=== PATIENT | female | born 1985 | race Caucasian/White ===

== ENCOUNTER 2021-02-22 15:13 | Emergency (ER) | payer MEDICAID, SELFPAY ==
--- NOTE | ~2021-02-22 | US_ITS ---
EXAMINATION: US ABDOMEN LIMITED CLINICAL INFORMATION: Increasing abdominal girth with intermittent pain. Rule out ascites.. COMPARISON: None TECHNIQUE: Real-time imaging of the right upper quadrant abdominal viscera. FINDINGS: No ascites is identified. The main portal vein is patent with hepatopedal flow. Patient is status post cholecystectomy. There is splenomegaly present at 15 cm in vertical span. The few images of the liver that are included in the study do not demonstrate any intrahepatic bile duct dilatation. US/US abdomen limited IMPRESSION: No ascites identified. Splenomegaly.
--- NOTE | ~2021-02-22 | CT_ITS ---
EXAMINATION: CT ABDOMEN AND PELVIS WITHOUT CONTRAST CLINICAL INFORMATION: Bloating and abdominal pain. COMPARISON: Abdominal ultrasound of 02/23/2021. TECHNIQUE: Multidetector volumetric imaging was performed from the superior aspect of the liver through the pubic symphysis. Sagittal and coronal reformatted images were obtained on the technologist's workstation. This CT examination was performed using dose optimization techniques as appropriate, variously including the following: *Automated exposure control *Adjustment of mA and/or kV according to patient size (this includes techniques or standardized protocols for targeted exams where dose is matched to indication/reason for exam; i.e. extremities or head) *Use of iterative reconstruction technique DLP: 634 mGy-cm FINDINGS: LUNG BASES: The visualized lung bases are unremarkable. LIVER, GALLBLADDER, AND BILIARY TREE: The liver is normal in size. There is hypertrophy of the left hepatic lobe with mild liver contour nodularity. No focal lesion is noted in the liver within the limits of the noncontrast study. The gallbladder is surgically absent. The proximal common bile duct measures 1.2 cm in diameter. Distally, the common bile duct tapers normally. There is no evidence of radiopaque filling defect in the common bile duct. No intrahepatic biliary ductal dilatation. PANCREAS: Unremarkable. SPLEEN: Enlarged measuring 14.4 cm in craniocaudal dimension and 15.5 cm in AP dimension. No focal splenic lesion is noted. ADRENAL GLANDS: Unremarkable. KIDNEYS AND URETERS: The kidneys are normal in size, shape, and attenuation. No hydronephrosis, hydroureter, or calculi are seen. No perinephric stranding. BLADDER: Somewhat underdistended and therefore not optimally evaluated. No radiopaque calculi. GASTROINTESTINAL TRACT: The small and large bowel is unremarkable. The appendix is unremarkable. Moderate stool burden in the colon. The stomach is distended with ingested material and appears grossly unremarkable. ABDOMINAL WALL: There is a small right inguinal hernia containing fat, measuring 2 cm in maximum dimension. OMENTUM, MESENTERY AND PERITONEAL CAVITY: There is no evidence of free intraperitoneal air or fluid. Faint stranding is noted in the root of the small bowel mesentery with subcentimeter lymph nodes in the region. LYMPH NODES: No pathologically enlarged lymph nodes are noted. VASCULAR: Aortoiliac vessels are normal in caliber. PELVIC VISCERA: Unremarkable CT appearance of the uterus. No adnexal mass. Trace amount of air in the vagina. OSSEOUS STRUCTURES: Unremarkable. CT/CT abdomen pelvis wo con IMPRESSION: 1. Morphology of the liver is concerning for underlying cirrhosis. Recommend clinical correlation and correlation with lab values. 2. Splenomegaly. 3. Status post cholecystectomy. Mild dilatation of the common bile duct measuring up to 1.1 cm. The findings are probably related to post cholecystectomy status, however correlate with liver function tests. If clinically warranted, correlation with ERCP and/or MRCP would be helpful for further evaluation. 4. Faint stranding in the root of the small bowel mesentery with subcentimeter lymph nodes. 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 Findings can be seen in the setting of lymphoproliferative disorder. There are no pertinent prior studies for comparison. Recommend clinical correlation and correlation with lab values. 5. Moderate stool burden in the colon. No abnormal bowel dilatation or bowel obstruction.
--- NOTE | ~2021-02-22 | XR_ITS ---
EXAMINATION: XR CERVICAL SPINE CLINICAL INFORMATION: Pain COMPARISON: None TECHNIQUE: 3 views of the cervical spine were obtained. FINDINGS: Bone alignment is normal. No fracture or dislocation is seen. Disc spaces are normal. Prevertebral soft tissues are normal. XR/XR cervical spine 3V IMPRESSION: Unremarkable examination.
[2021-02-22 15:59] VITALS: BP 121/86; BP 128/80; PULSE 110; PULSE 92; RESP 18; TEMP 36.8; O2SAT 100; O2SAT 98; BMI 30.2
[2021-02-22 21:19] LABS: MANUAL DIFF FLAG NO
[2021-02-22 21:20] LABS: Basophils Percent Auto 0.3 % (0-2); Eosinophils Absolute Auto 0.1 X10*3/uL (0.0-0.4); Eosinophils Percent Auto 2.2 % (0-4); Hematocrit 35.7 % (37.0-47.0); Hemoglobin 11.9 g/dl (12.0-16.0); Imm Gran Abs Auto 0.01 X10*3/uL (0.00-0.03); Imm Gran Pct Auto 0.3 % (0.0-0.4); Lymphocytes Absolute Auto 0.9 X10*3/uL (1.2-4.9); Lymphocytes Percent Auto 27.4 % (20-40); Mean Corpuscular HGB Conc 33.3 g/dl (31.0-35.0); Mean Corpuscular Hemoglobin 30.3 pg (27.0-33.0); Mean Corpuscular Volume 90.8 fL (80.0-98.0); Mean Platelet Volume 12.1 fL (9.4-12.3); Monocytes Absolute Auto 0.4 X10*3/uL (0.1-1.2); Monocytes Percent Auto 12.6 % (2-11); Neutrophils Absolute Auto 1.8 x10*3/uL (2.0-8.3); Neutrophils Percent Auto 57.2 % (45-73); Red Blood Count 3.93 X10*6/uL (4.20-5.50); Red Cell Distribution Width 14.4 % (11.0-16.0); White Blood Count 3.2 X10*3/uL (4.8-10.8)
[2021-02-22 21:40] LABS: Platelet Count 93 X10*3/uL (160-400)
[2021-02-22 21:59] LABS: Alanine Aminotransferase 121 U/L (0-31); Albumin Level 3.9 g/dL (3.5-5.0); Alkaline Phosphatase 109 U/L (39-117); Anion Gap 9 (12-20); Aspartate Amino Transferase 76 U/L (5-31); Bilirubin Total 0.5 mg/dL (0.0-1.0); Blood Urea Nitrogen 13 mg/dL (9-16); Calcium 9.6 mg/dL (8.4-10.2); Carbon Dioxide 32 mmol/L (22-29); Chloride 103 mmol/L (96-108); Creatinine Clr Calc Pharmacy 98.2; Estimated Glomerular Filt Rate > 60; Glucose Random 122 mg/dL (60-115); Potassium 4.3 mmol/L (3.3-5.1); Sodium 140 mmol/L (135-145); Total Protein 7.6 g/dL (6.5-8.0)
[2021-02-23 05:57] LABS: Appearance Urine CLEAR; Color Urine YELLOW; Glucose Urine UA NEG (NEG); Leukocyte Esterase Urine 1+ (NEG); Nitrite Urine NEG (NEG); PH 6.5 (5.0-8.0); UACC Culture Trigger YES; Urine Blood NEG (NEG); Urine Ketones NEG (NEG); Urine Protein NEG (NEG-TRACE)
[2021-02-23 06:00] LABS: UPreg QC Valid YES; Urine Pregnancy NEGATIVE (NEGATIVE)
[2021-02-23 06:06] LABS: Bacteria Urine 2+ /LPF; Mucus Urine 1+ /LPF; Squamous Epithelial Cell Urine 1+ /LPF
--- NOTE | 2021-02-23 08:07 | PC.NURSE ---
abd remains distended and somewhat firm. c/o most pain in upper quads. no vomitting. hx of Hep C. no treatment. has appointement at [facility].
--- NOTE | 2021-02-23 08:08 | PC.NURSE ---
amendment to previous note. abd is soft with areas of firmness. no jaundice. no SOB
[2021-02-23 08:09] VITALS: BP 125/87; PULSE 79; RESP 18; TEMP 36.8; O2SAT 98
--- NOTE | 2021-02-23 09:26 | PC.NURSE ---
pt will have someone bring her regular meds
--- NOTE | 2021-02-23 10:55 | ED_ITS ---
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 and she has hep C She has had no fevers no dysuria no nausea or vomiting, right now she has no pain in the abdomen She also complains of several weeks of pain in her neck with sometimes numbness and tingling in her fingertips with no injury she has never had weakness or loss of sensation Related Data Previous Rx's Medication Instructions Recorded oxycodone 5 mg tablet 5 mg PO Q6H PRN #10 tab 02/23/21 Allergies Allergy/AdvReac Type Severity Reaction Status Date / Time No Known Allergies Allergy Verified 02/22/21 15:59 Review of Systems Review of Systems: Positive for abdominal pain, increased abdominal girth, bloating as well as neck pain Negatives are no fever no chills no dizziness no weakness no fainting no feeling faint no headache no neck pain no chest pain no shortness of breath no nausea vomiting or diarrhea no dysuria no frequency no skin rash Yes all other systems are reviewed and are negative [facility] Past Medical History [facility] Narrative: Recovering alcoholic 90 days sober, as well as history of hep C Source: nursing notes reviewed Social History Social History Advance Directives: No Advance Directives Information Provided: No Patient : No Physical Exam Vital Signs: Vital Signs: Last Vital Signs Temp 98.2 F 02/23/21 08:09 Pulse 79 02/23/21 08:09 Resp 18 02/23/21 08:09 BP 125/87 02/23/21 08:09 Pulse Ox 98 02/23/21 08:09 BMI result Body Mass Index 30.2 General appearance is no acute distress The eyes are anicteric with no pallor Pharynx the mucous membranes are moist Neck is supple, but there was some posterior bilateral paraspinal tenderness, range of motion is unrestricted with only mild discomfort Chest clear to auscultation bilateral Heart no murmur Abdomen was soft, with very mild diffuse tenderness There appeared to be a mid abdominal bulge which was reducible so likely a reducible hernia The back no CVA tenderness Extremities full range of motion x4 no edema Skin no rashes Course Course Course Narrative: X-ray of the C-spine showed normal alignment with normal disc spaces She is advised to follow with primary care doctor for further evaluation physi georgina therapy and if needed referral to a specialist if pain continues No acute neurologic deficits now and she was comfortable throughout visit Patient remained comfortable throughout long ER visit with no need for any pain medication, no nausea no vomiting tolerating p.o. Abdominal ultrasound did not identify any ascites, it did demonstrate splenomegaly no other acute finding CT of the abdomen demonstrated questionable underlying cirrhosis, post cholecystectomy there was some mild dilatation of the bile duct most likely related to post cholecystectomy Question of mesenteric panniculitis, but there are no acute findings requiring emergent care and patient was comfortable There was no hernia identified on the CT or the ultrasound but I did believe I palpated a reducible hernia mass in the mid abdomen so I did refer her to a surgeon for further evaluation and gave her warnings if the mass becomes on reducible or she starts vomiting her pain gets worse she will come back Labs did demonstrate some elevation of AST and ALT, they did demonstrate platelets 93 and patient is advised to follow with both her doctor and her swatcher who she has a schedule to see in a few weeks for hep C evaluation Well-appearing patient tolerating p.o. was discharged to follow with surgeon and GI and primary care Medical Decision Making Lab Data Lab results reviewed: Yes I reviewed the patient's lab results. Result diagrams: 02/22/21 21:14 02/22/21 21:14 Labs: Lab Results 02/22/21 02/22/21 02/23/21 Range/Units 21:14 21:14 05:39 WBC 3.2 L (4.8-10.8) X10*3/uL RBC 3.93 L (4.20-5.50) X10*6/uL Hgb 11.9 L (12.0-16.0) g/dl Hct 35.7 L (37.0-47.0) % MCV 90.8 (80.0-98.0) fL MCH 30.3 (27.0-33.0) pg MCHC 33.3 (31.0-35.0) g/dl RDW 14.4 (11.0-16.0) % Plt Count 93 L (160-400) X10*3/uL MPV 12.1 (9.4-12.3) fL Immature Gran % (Auto) 0.3 (0.0-0.4) % Neut % (Auto) 57.2 (45-73) % Lymph % (Auto) 27.4 (20-40) % [place] % (Auto) 12.6 H (2-11) % Eos % (Auto) 2.2 (0-4) % Baso % (Auto) 0.3 (0-2) % Lymph # (Auto) 0.9 L (1.2-4.9) X10*3/uL [place] # (Auto) 0.4 (0.1-1.2) X10*3/uL Eos # (Auto) 0.1 (0.0-0.4) X10*3/uL Baso # (Auto) 0.0 (0.0-0.2) X10*3/uL Abs Immat Gran (auto) 0.01 (0.00-0.03) X10*3/uL Absolute Neuts (auto) 1.8 L (2.0-8.3) x10*3/uL Absolute Nucleated RBC 0.000 (0.0-0.012) X10*3/uL Nucleated RBC % (auto) 0.0 (0.0-0.2) /100WBC Sodium 140 (135-145) mmol/L Potassium 4.3 (3.3-5.1) mmol/L Chloride 103 (96-108) mmol/L Carbon Dioxide 32 H (22-29) mmol/L Anion Gap 9 L (12-20) BUN 13 (9-16) mg/dL Creatinine 0.75 (0.5-1.4) mg/dL Estim Creat Clear Calc 98.2 Estimated GFR > 60 Random Glucose 122 H (60-115) mg/dL Calcium 9.6 (8.4-10.2) mg/dL Total Bilirubin 0.5 (0.0-1.0) mg/dL AST 76 H (5-31) U/L ALT 121 H (0-31) U/L Alkaline Phosphatase 109 (39-117) U/L Total Protein 7.6 (6.5-8.0) g/dL Albumin 3.9 (3.5-5.0) g/dL Urine Color YELLOW Urine Appearance CLEAR Urine pH 6.5 (5.0-8.0) Ur Specific [place] 1.020 (1.005-1.025) Urine Protein NEG (NEG-TRACE) MG/DL Urine Glucose (UA) NEG (NEG) MG/DL Urine Ketones NEG (NEG) MG/DL Urine Blood NEG (NEG) Urine Nitrite NEG (NEG) Ur Leukocyte Esterase 1+ H (NEG) Urine RBC 1-4 (0) /HPF Urine WBC 15-29 H (0-4) /HPF Ur Squamous Epith Cells 1+ /LPF Urine Bacteria 2+ /LPF Urine Mucus 1+ /LPF Urine Test (NEGATIVE) 02/23/21 Range/Units 05:39 WBC (4.8-10.8) X10*3/uL RBC (4.20-5.50) X10*6/uL Hgb (12.0-16.0) g/dl Hct (37.0-47.0) % MCV (80.0-98.0) fL MCH (27.0-33.0) pg MCHC (31.0-35.0) g/dl RDW (11.0-16.0) % Plt Count (160-400) X10*3/uL MPV (9.4-12.3) fL Immature Gran % (Auto) (0.0-0.4) % Neut % (Auto) (45-73) % Lymph % (Auto) (20-40) % [place] % (Auto) (2-11) % Eos % (Auto) (0-4) % Baso % (Auto) (0-2) % Lymph # (Auto) (1.2-4.9) X10*3/uL [place] # (Auto) (0.1-1.2) X10*3/uL Eos # (Auto) (0.0-0.4) X10*3/uL Baso # (Auto) (0.0-0.2) X10*3/uL Abs Immat Gran (auto) (0.00-0.03) X10*3/uL Absolute Neuts (auto) (2.0-8.3) x10*3/uL Absolute Nucleated RBC (0.0-0.012) X10*3/uL Nucleated RBC % (auto) (0.0-0.2) /100WBC Sodium (135-145) mmol/L Potassium (3.3-5.1) mmol/L Chloride (96-108) mmol/L Carbon Dioxide (22-29) mmol/L Anion Gap (12-20) BUN (9-16) mg/dL Creatinine (0.5-1.4) mg/dL Estim Creat Clear Calc Estimated GFR Random Glucose (60-115) mg/dL Calcium (8.4-10.2) mg/dL Total Bilirubin (0.0-1.0) mg/dL AST (5-31) U/L ALT (0-31) U/L Alkaline Phosphatase (39-117) U/L Total Protein (6.5-8.0) g/dL Albumin (3.5-5.0) g/dL Urine Color Urine Appearance Urine pH (5.0-8.0) Ur Specific [place] (1.005-1.025) Urine Protein (NEG-TRACE) MG/DL Urine Glucose (UA) (NEG) MG/DL Urine Ketones (NEG) MG/DL Urine Blood (NEG) Urine Nitrite (NEG) Ur Leukocyte Esterase (NEG) Urine RBC (0) /HPF Urine WBC (0-4) /HPF Ur Squamous Epith Cells /LPF Urine Bacteria /LPF Urine Mucus /LPF Urine Test NEGATIVE (NEGATIVE) Discharge Plan Discharge Clinical Impression: Thrombocytopenia, Neck pain, Hernia Patient Disposition: Home, Self-Care Additional Instructions: Follow with surgeon for evaluation of hernia in abdomen wall Return to the ER if it gets stuck for few started vomiting or developed severe worsening pain You have low platelets which is used for clotting so do not take Motrin or Naprosyn as they can cause bleeding Follow with GI doctor for evaluation of her hep C Your liver tests were abnormal which may be a result of hep C, so follow with GI doctor and primary doctor Follow with primary doctor when available Return to the ER any time for vomiting, severe uncontrolled pain any worse condition or any concerns Prescriptions: New oxycodone 5 mg tablet 5 mg PO Q6H PRN (Reason: pain) Qty: 10 RF: 0 Referrals: Lance Bautista MD [Physician] - 2 weeks (Large reducible hernia) Interventions: ED Discharge Assessment Last Done: 02/23/21 15:07 Discharge Date/Time: 02/23/21 15:07
[2021-02-23] MEDS: oxyCODONE HCl Immed Release 5 MG TABLET PO (14:56)
== END 2021-02-23 15:07 | disposition home or self-care (01) ==
PROVIDERS: Physician Assistant Medical; Student in an Organized Health Care Education/Training Program; Emergency Provider Emergency Medicine
DX: M54.2 Cervicalgia (principal); D69.6 Thrombocytopenia, unspecified; K46.9 Unspecified abdominal hernia without obstruction or gangrene; R16.1 Splenomegaly, not elsewhere classified; R10.9 Unspecified abdominal pain; B19.20 Unspecified viral hepatitis C without hepatic coma; Z90.49 Acquired absence of other specified parts of digestive tract
CPT/HCPCS: 36415; 72040; 74176; 76705; 80053; 81001; 81003; 81025; 85025; 87086; 99284

== ENCOUNTER 2021-03-29 11:38 | Outpatient (REF) | payer MEDICAID, SELFPAY ==
[2021-03-29 13:48] LABS: MANUAL DIFF FLAG NO
[2021-03-29 13:54] LABS: Basophils Percent Auto 0.5 % (0-2); Eosinophils Percent Auto 0.9 % (0-4); Hematocrit 38.4 % (37.0-47.0); Hemoglobin 12.9 g/dl (12.0-16.0); Imm Gran Abs Auto 0.01 X10*3/uL (0.00-0.03); Imm Gran Pct Auto 0.2 % (0.0-0.4); Lymphocytes Absolute Auto 0.9 X10*3/uL (1.2-4.9); Lymphocytes Percent Auto 20.9 % (20-40); Mean Corpuscular HGB Conc 33.6 g/dl (31.0-35.0); Mean Corpuscular Hemoglobin 30.1 pg (27.0-33.0); Mean Corpuscular Volume 89.7 fL (80.0-98.0); Monocytes Absolute Auto 0.5 X10*3/uL (0.1-1.2); Monocytes Percent Auto 11.6 % (2-11); Neutrophils Absolute Auto 2.8 x10*3/uL (2.0-8.3); Neutrophils Percent Auto 65.9 % (45-73); Red Blood Count 4.28 X10*6/uL (4.20-5.50); Red Cell Distribution Width 14.8 % (11.0-16.0); White Blood Count 4.3 X10*3/uL (4.8-10.8)
[2021-03-29 13:55] LABS: Platelet Count 88 X10*3/uL (160-400)
[2021-03-29 14:01] LABS: Prothrombin Time 11.8 SEC (9.9-13.0)
[2021-03-29 14:15] LABS: Alanine Aminotransferase 88 U/L (0-31); Albumin Level 3.7 g/dL (3.5-5.0); Alkaline Phosphatase 91 U/L (39-117); Anion Gap 10 (12-20); Aspartate Amino Transferase 65 U/L (5-31); Bilirubin Total 0.7 mg/dL (0.0-1.0); Blood Urea Nitrogen 12 mg/dL (9-16); Carbon Dioxide 28 mmol/L (22-29); Chloride 101 mmol/L (96-108); Estimated Glomerular Filt Rate > 60; Glucose Random 141 mg/dL (60-115); Iron 182 mcg/dL (30-160); Percent Iron Saturation 45 % (15-50); Potassium 4.3 mmol/L (3.3-5.1); Sodium 135 mmol/L (135-145); Total Iron Binding Capacity 407 mcg/dL (228-428); Total Protein 7.4 g/dL (6.5-8.0); Unsaturated Iron Binding 225 ug/dL
[2021-03-29 15:39] LABS: Ferritin 67 ng/mL (10-122)
[2021-03-30 08:15] LABS: Hepatitis A Antibody IgG Nonreactive (Nonreactive); ~Hepatitis A Antibody IgG 0.61 S/CO (0.00-0.99)
[2021-03-30 08:18] LABS: HBsAGNum1 0.21 S/CO (0.00-0.99); Hepatitis B Surface Antigen Negative (Negative); ~HepC Num1 11.63 S/CO (0.00-0.79); ~Hepatitis C Antibody Reactive (Nonreactive)
[2021-03-30 08:27] LABS: HIV AB/AG Nonreactive (Nonreactive); Hepatitis B Core Antibody Nonreactive (Nonreactive); ~Hepatitis B Surface Antibody REACTIVE (Nonreactive)
[2021-03-30 09:09] LABS: HBS Num1 203.82 mIU/mL (0-7.99); HBc Num1 0.11 S/CO (0.00-0.79); HIV Num 1 0.08 S/CO (0.00-0.99); Hepatitis A Antibody IgM 0.25 Index (0-0.79); ~Hepatitis A Antibody IgM Nonreactive (Nonreactive)
[2021-03-31 19:31] LABS: TS Negative Control Passed; TS Panel A 0; TS Panel B 0; TS Positive Control Passed; TSpotTB Negative (Negative)
== END 2021-03-29 11:39 | disposition home or self-care (01) ==
LOC: HO.HMGCLDS 11:38
DX: Z11.4 Encounter for screening for human immunodeficiency virus [HIV] (principal); K62.5 Hemorrhage of anus and rectum; B18.2 Chronic viral hepatitis C; K76.0 Fatty (change of) liver, not elsewhere classified; R79.89 Other specified abnormal findings of blood chemistry; R76.8 Other specified abnormal immunological findings in serum
CPT/HCPCS: 36415; 80053; 82728; 83540; 85025; 85610; 86481; 86704; 86706; 86708; 86709; 86803; 87340; 87389

== ENCOUNTER 2021-04-26 14:21 | Emergency (ER) | payer OTHER, SELFPAY ==
--- NOTE | 2021-04-26 14:30 | ECG_ITS ---
Test Reason : syncope Blood Pressure : / mmHG Vent. Rate : 063 BPM Atrial Rate : 063 BPM P-R Int : 136 ms QRS Dur : 086 ms QT Int : 392 ms P-R-T Axes : 057 030 042 degrees QTc Int : 401 ms Normal sinus rhythm with sinus arrhythmia Normal ECG No previous ECGs available Referred By: Francia Lieberman Electronically Signed By:ETHEL PAT MD
--- NOTE | 2021-04-26 14:34 | ED.GENADULT ---
HPI - General Adult General Chief complaint: Syncope Stated complaint: SYNCOPE PER EMS Time Seen by Provider: 04/26/21 14:24 Source: patient Mode of arrival: ambulatory Limitations: no limitations History of Present Illness HPI narrative: Patient comes emergency room complaining of syncopal episode. Patient states that earlier today, patient receive a phone call from her 9-year-old daughter who was at school. Patient states that something ?personal? happen. This event and phone call made the patient extremely anxious. Patient had a panic attack. Then, patient went to the restroom. Patient states that when she stood up from using the restroom patient started feeling lightheaded, patient was able to lean against the wall and fly down to the floor. Patient did not hit her head. Patient lost consciousness for a couple of minutes. Patient states that this was seen on the security camera at the program that she was attending. Patient denies chest pain, no shortness of breath. Related Data Previous Rx's Medication Instructions Recorded oxycodone 5 mg tablet 5 mg PO Q6H PRN #10 tab 02/24/21 oxycodone 5 mg tablet 5 mg PO Q6H PRN #10 tab 02/24/21 Allergies Allergy/AdvReac Type Severity Reaction Status Date / Time No Known Allergies Allergy Verified 02/22/21 15:59 Review of Systems Review of Systems: Constitutional : No Weight loss, No Fever, No Chills, No Night Sweats, No Fatigue, No Malaise ENT/Mouth : No Hearing loss, No Ear Pain, No Nasal Congestion, No Sinus Pain, No Hoarseness, No sore throat, No Rhinorrhea, No Swallowing Difficulty Eyes: No Eye Pain, No Swelling, No Redness, No Foreign Body, No Discharge, No Vision Changes Cardiovascular : No Chest Pain, No SOB, No Dyspnea on Exertion, No Orthopnea, No Edema, No Palpitations Respiratory : No Cough, No Sputum, No Wheezing, No Smoke Exposure, No Dyspnea Gastrointestinal : No Nausea, No Vomiting, No Diarrhea, No Constipation, No abdominal Pain, No Hematochezia, No Melena Genitourinary : no irregular bleeding, No Dysuria, No Urinary Frequency, No Hematuria, No Urinary Incontinence, No Urgency, No Flank Pain, No Urinary Flow Changes, No Hesitancy Musculoskeletal : No joint pain, No Myalgias, No Joint Swelling Skin : No Skin Lesions, No rash Neuro : No Weakness, No Numbness, No Paresthesias, syncopal episode after standing up from the restroom. No headache, no head injury Psych : Complaining of a panic attack, feeling anxious, no depression, no SI or HI Heme/Lymph: No Bruising, No Bleeding,No Lymphadenopathy Endocrine : No Polyuria, No Polydipsia, No Temperature Intolerance [facility] Past Medical History Medical History (Updated 04/26/21 @ 16:19 by Francia Lieberman MD) Alcohol abuse Anxiety Hepatitis C Social History Social History Alcohol intake: former Patient Tobacco Use Status: Current everyday Tobacco user Use of substances other than those prescribed or required for medical reasons: No Advance Directives: No Advance Directives Information Provided: Yes Patient : No Physical Exam ED Vital Signs: Vital Signs - 24 hr 04/26/21 14:35 04/26/21 14:37 04/26/21 14:44 Temperature 99.0 F Pulse Rate 65 75 73 Respiratory Rate 16 Blood Pressure 167/89 H 172/88 H 144/81 H Pulse Oximetry 96 04/26/21 15:22 Temperature 99.0 F Pulse Rate 73 Respiratory Rate 16 Blood Pressure 144/81 H Pulse Oximetry 96 BMI result Body Mass Index 36.5 Const Other: Appearance: Alert. Oriented X3. Anxious Eyes: Pupils equal, round and reactive to light. ENT: Pharynx normal. Neck: Normal inspection. Neck supple. No lymph nodes noted. No crepitus CVS: Normal heart rate and rhythm. Pulses normal. Normal S1 and S2 Respiratory: No respiratory distress. Breath sounds normal. No Wheezing. No rales Abdomen: Soft and nontender. No rigidity. No distention. good BS x4 Skin: Skin warm and dry. Normal skin color. Normal skin turgor. Extremities: No lower extremity edema. No Lacerations. No Rash Neuro: Oriented X 3. No motor deficit. No sensory deficit. Moving all extermities. No slurred speech. CN 2 through 12 grossly intact. Psych: Calm, cooperative, anxious, normal speech Course Course Course Narrative: Patient feeling better. Patient's orthostatics were positive. The patient's syncopal episode likely secondary to vasovagal. Patient prefers oral hydration. Patient would like to be discharged. Medical Decision Making Lab Data Result diagrams: 04/26/21 15:07 04/26/21 15:07 Labs: Lab Results 04/26/21 04/26/21 04/26/21 Range/Units 15:07 15:07 15:07 WBC 8.5 (4.8-10.8) X10*3/uL RBC 4.09 L (4.20-5.50) X10*6/uL Hgb 12.7 (12.0-16.0) g/dl Hct 37.2 (37.0-47.0) % MCV 91.0 (80.0-98.0) fL MCH 31.1 (27.0-33.0) pg MCHC 34.1 (31.0-35.0) g/dl RDW 13.9 (11.0-16.0) % Plt Count 88 L (160-400) X10*3/uL MPV 12.6 H (9.4-12.3) fL Immature Gran % (Auto) 0.1 (0.0-0.4) % Neut % (Auto) 90.3 H (45-73) % Lymph % (Auto) 7.2 L (20-40) % [place] % (Auto) 2.2 (2-11) % Eos % (Auto) 0.1 (0-4) % Baso % (Auto) 0.1 (0-2) % Lymph # (Auto) 0.6 L (1.2-4.9) X10*3/uL [place] # (Auto) 0.2 (0.1-1.2) X10*3/uL Eos # (Auto) 0.0 (0.0-0.4) X10*3/uL Baso # (Auto) 0.0 (0.0-0.2) X10*3/uL Abs Immat Gran (auto) 0.01 (0.00-0.03) X10*3/uL Absolute Neuts (auto) 7.7 (2.0-8.3) x10*3/uL Absolute Nucleated RBC 0.000 (0.0-0.012) X10*3/uL Nucleated RBC % (auto) 0.0 (0.0-0.2) /100WBC Smear Tech's Comments VERIFIED Sodium 137 (135-145) mmol/L Potassium 4.6 (3.3-5.1) mmol/L Chloride 103 (96-108) mmol/L Carbon Dioxide 28 (22-29) mmol/L Anion Gap 11 L (12-20) BUN 12 (9-16) mg/dL Creatinine 0.90 (0.5-1.4) mg/dL Estim Creat Clear Calc 86.9 Estimated GFR > 60 Random Glucose 161 H (60-115) mg/dL Calcium 8.8 (8.4-10.2) mg/dL Magnesium 1.9 (1.6-2.6) mg/dL Total Bilirubin 0.6 (0.0-1.0) mg/dL Direct Bilirubin 0.3 (0.0-0.5) mg/dL AST 26 D (5-31) U/L ALT 42 H (0-31) U/L Alkaline Phosphatase 90 (39-117) U/L Troponin I High Sens < 3.5 (<3.5-17.0) ng/L Total Protein 7.4 (6.5-8.0) g/dL Albumin 3.8 (3.5-5.0) g/dL Urine Color Urine Appearance Urine pH (5.0-8.0) Ur Specific [place] (1.005-1.025) Urine Protein (NEG-TRACE) MG/DL Urine Glucose (UA) (NEG) MG/DL Urine Ketones (NEG) MG/DL Urine Blood (NEG) Urine Nitrite (NEG) Ur Leukocyte Esterase (NEG) Urine Test (NEGATIVE) Urine Opiates Screen (Not Detect) Urine Fentanyl Screen (Not Detect) Ur Barbiturates Screen (Not Detect) Ur Phencyclidine Scrn (Not Detect) Ur Amphetamines Screen (Not Detect) U Benzodiazepines Scrn (Not Detect) Urine Cocaine Screen (Not Detect) U Marijuana (THC) Screen (Not Detect) Ethyl Alcohol mg/dL 04/26/21 04/26/21 04/26/21 Range/Units 15:07 15:07 15:07 WBC (4.8-10.8) X10*3/uL RBC (4.20-5.50) X10*6/uL Hgb (12.0-16.0) g/dl Hct (37.0-47.0) % MCV (80.0-98.0) fL MCH (27.0-33.0) pg MCHC (31.0-35.0) g/dl RDW (11.0-16.0) % Plt Count (160-400) X10*3/uL MPV (9.4-12.3) fL Immature Gran % (Auto) (0.0-0.4) % Neut % (Auto) (45-73) % Lymph % (Auto) (20-40) % [place] % (Auto) (2-11) % Eos % (Auto) (0-4) % Baso % (Auto) (0-2) % Lymph # (Auto) (1.2-4.9) X10*3/uL [place] # (Auto) (0.1-1.2) X10*3/uL Eos # (Auto) (0.0-0.4) X10*3/uL Baso # (Auto) (0.0-0.2) X10*3/uL Abs Immat Gran (auto) (0.00-0.03) X10*3/uL Absolute Neuts (auto) (2.0-8.3) x10*3/uL Absolute Nucleated RBC (0.0-0.012) X10*3/uL Nucleated RBC % (auto) (0.0-0.2) /100WBC Smear Tech's Comments Sodium (135-145) mmol/L Potassium (3.3-5.1) mmol/L Chloride (96-108) mmol/L Carbon Dioxide (22-29) mmol/L Anion Gap (12-20) BUN (9-16) mg/dL Creatinine (0.5-1.4) mg/dL Estim Creat Clear Calc Estimated GFR Random Glucose (60-115) mg/dL Calcium (8.4-10.2) mg/dL Magnesium (1.6-2.6) mg/dL Total Bilirubin (0.0-1.0) mg/dL Direct Bilirubin (0.0-0.5) mg/dL AST (5-31) U/L ALT (0-31) U/L Alkaline Phosphatase (39-117) U/L Troponin I High Sens (<3.5-17.0) ng/L Total Protein (6.5-8.0) g/dL Albumin (3.5-5.0) g/dL Urine Color YELLOW Urine Appearance CLEAR Urine pH 6.0 (5.0-8.0) Ur Specific [place] 1.010 (1.005-1.025) Urine Protein NEG (NEG-TRACE) MG/DL Urine Glucose (UA) NEG (NEG) MG/DL Urine Ketones NEG (NEG) MG/DL Urine Blood NEG (NEG) Urine Nitrite NEG (NEG) Ur Leukocyte Esterase NEG (NEG) Urine Test (NEGATIVE) Urine Opiates Screen Not Detected (Not Detect) Urine Fentanyl Screen POSITIVE H (Not Detect) Ur Barbiturates Screen Not Detected (Not Detect) Ur Phencyclidine Scrn Not Detected (Not Detect) Ur Amphetamines Screen POSITIVE H (Not Detect) U Benzodiazepines Scrn Not Detected (Not Detect) Urine Cocaine Screen Not Detected (Not Detect) U Marijuana (THC) Screen Not Detected (Not Detect) Ethyl Alcohol < 10 mg/dL 04/26/21 Range/Units 15:18 WBC (4.8-10.8) X10*3/uL RBC (4.20-5.50) X10*6/uL Hgb (12.0-16.0) g/dl Hct (37.0-47.0) % MCV (80.0-98.0) fL MCH (27.0-33.0) pg MCHC (31.0-35.0) g/dl RDW (11.0-16.0) % Plt Count (160-400) X10*3/uL MPV (9.4-12.3) fL Immature Gran % (Auto) (0.0-0.4) % Neut % (Auto) (45-73) % Lymph % (Auto) (20-40) % [place] % (Auto) (2-11) % Eos % (Auto) (0-4) % Baso % (Auto) (0-2) % Lymph # (Auto) (1.2-4.9) X10*3/uL [place] # (Auto) (0.1-1.2) X10*3/uL Eos # (Auto) (0.0-0.4) X10*3/uL Baso # (Auto) (0.0-0.2) X10*3/uL Abs Immat Gran (auto) (0.00-0.03) X10*3/uL Absolute Neuts (auto) (2.0-8.3) x10*3/uL Absolute Nucleated RBC (0.0-0.012) X10*3/uL Nucleated RBC % (auto) (0.0-0.2) /100WBC Smear Tech's Comments Sodium (135-145) mmol/L Potassium (3.3-5.1) mmol/L Chloride (96-108) mmol/L Carbon Dioxide (22-29) mmol/L Anion Gap (12-20) BUN (9-16) mg/dL Creatinine (0.5-1.4) mg/dL Estim Creat Clear Calc Estimated GFR Random Glucose (60-115) mg/dL Calcium (8.4-10.2) mg/dL Magnesium (1.6-2.6) mg/dL Total Bilirubin (0.0-1.0) mg/dL Direct Bilirubin (0.0-0.5) mg/dL AST (5-31) U/L ALT (0-31) U/L Alkaline Phosphatase (39-117) U/L Troponin I High Sens (<3.5-17.0) ng/L Total Protein (6.5-8.0) g/dL Albumin (3.5-5.0) g/dL Urine Color Urine Appearance Urine pH (5.0-8.0) Ur Specific [place] (1.005-1.025) Urine Protein (NEG-TRACE) MG/DL Urine Glucose (UA) (NEG) MG/DL Urine Ketones (NEG) MG/DL Urine Blood (NEG) Urine Nitrite (NEG) Ur Leukocyte Esterase (NEG) Urine Test NEGATIVE (NEGATIVE) Urine Opiates Screen (Not Detect) Urine Fentanyl Screen (Not Detect) Ur Barbiturates Screen (Not Detect) Ur Phencyclidine Scrn (Not Detect) Ur Amphetamines Screen (Not Detect) U Benzodiazepines Scrn (Not Detect) Urine Cocaine Screen (Not Detect) U Marijuana (THC) Screen (Not Detect) Ethyl Alcohol mg/dL Discharge Plan Discharge Clinical Impression: Vasovagal syncope, Anxiety Patient Disposition: Home, Self-Care Instructions: Syncope (ED) Additional Instructions: Stay well hydrated. Drink plenty of fluids. Please follow-up with your primary care physician tomorrow. If you have any worsening or new symptoms, please return to the emergency room or call 911 Prescriptions: No Action oxycodone 5 mg tablet 5 mg PO Q6H PRN (Reason: pain) Qty: 10 0RF oxycodone 5 mg tablet 5 mg PO Q6H PRN (Reason: pain) Qty: 10 0RF
[2021-04-26 14:35] VITALS: BP 167/89; PULSE 65
[2021-04-26 14:37] VITALS: BP 172/88; PULSE 75
[2021-04-26] MEDS: LORazepam 1 MG TABLET PO (14:40)
[2021-04-26 14:44] VITALS: BP 142/78; BP 144/81; PULSE 72; PULSE 73; PULSE 90; RESP 16; TEMP 37.2; O2SAT 96; BMI 36.5
[2021-04-26 15:13] LABS: Basophils Percent Auto 0.1 % (0-2); Eosinophils Percent Auto 0.1 % (0-4); Hematocrit 37.2 % (37.0-47.0); Hemoglobin 12.7 g/dl (12.0-16.0); Imm Gran Abs Auto 0.01 X10*3/uL (0.00-0.03); Imm Gran Pct Auto 0.1 % (0.0-0.4); Lymphocytes Absolute Auto 0.6 X10*3/uL (1.2-4.9); Lymphocytes Percent Auto 7.2 % (20-40); MANUAL DIFF FLAG SCAN; Mean Corpuscular HGB Conc 34.1 g/dl (31.0-35.0); Mean Corpuscular Hemoglobin 31.1 pg (27.0-33.0); Mean Platelet Volume 12.6 fL (9.4-12.3); Monocytes Absolute Auto 0.2 X10*3/uL (0.1-1.2); Monocytes Percent Auto 2.2 % (2-11); Neutrophils Absolute Auto 7.7 x10*3/uL (2.0-8.3); Neutrophils Percent Auto 90.3 % (45-73); Red Blood Count 4.09 X10*6/uL (4.20-5.50); Red Cell Distribution Width 13.9 % (11.0-16.0); SCAN SMEAR FLAG 1; White Blood Count 8.5 X10*3/uL (4.8-10.8)
[2021-04-26 15:17] LABS: Platelet Count 88 X10*3/uL (160-400)
[2021-04-26 15:22] VITALS: BP 144/81; PULSE 73; RESP 16; TEMP 37.2; O2SAT 96
[2021-04-26 15:26] LABS: Ethanol < 10 mg/dL
[2021-04-26 15:29] LABS: Appearance Urine CLEAR; Color Urine YELLOW; Glucose Urine UA NEG (NEG); Leukocyte Esterase Urine NEG (NEG); Nitrite Urine NEG (NEG); Urine Blood NEG (NEG); Urine Ketones NEG (NEG); Urine Protein NEG (NEG-TRACE)
[2021-04-26 15:31] LABS: Alanine Aminotransferase 42 U/L (0-31); Albumin Level 3.8 g/dL (3.5-5.0); Alkaline Phosphatase 90 U/L (39-117); Aspartate Amino Transferase 26 U/L (5-31); Bilirubin Direct 0.3 mg/dL (0.0-0.5); Bilirubin Total 0.6 mg/dL (0.0-1.0); Blood Urea Nitrogen 12 mg/dL (9-16); Calcium 8.8 mg/dL (8.4-10.2); Creatinine Clr Calc Pharmacy 86.9; Estimated Glomerular Filt Rate > 60; Glucose Random 161 mg/dL (60-115); Magnesium 1.9 mg/dL (1.6-2.6); Total Protein 7.4 g/dL (6.5-8.0)
[2021-04-26 15:37] LABS: Troponin-I High Sensitivity < 3.5 ng/L (<3.5-17.0)
[2021-04-26 15:40] LABS: Anion Gap 11 (12-20); Carbon Dioxide 28 mmol/L (22-29); Chloride 103 mmol/L (96-108); Potassium 4.6 mmol/L (3.3-5.1); Sodium 137 mmol/L (135-145)
[2021-04-26 15:42] LABS: SLIDE REVIEW VERIFIED
[2021-04-26 15:44] LABS: Amphetamine Screen Urine POSITIVE (Not Detect); Barbiturates, Urine Not Detected (Not Detect); Benzodiazepines Screen Urine Not Detected (Not Detect); Cannabinoid Screen Urine Not Detected (Not Detect); Cocaine Screen Urine Not Detected (Not Detect); Fentanyl, urine POSITIVE (Not Detect); Opiate Screen Urine Not Detected (Not Detect); Phencyclidine Screen Urine Not Detected (Not Detect)
[2021-04-26 15:57] LABS: UPreg QC Valid YES; Urine Pregnancy NEGATIVE (NEGATIVE)
== END 2021-04-26 16:43 | disposition home or self-care (01) ==
PROVIDERS: Emergency Provider Emergency Medicine
DX: R55 Syncope and collapse (principal); F41.9 Anxiety disorder, unspecified
CPT/HCPCS: 36415; 80048; 80076; 80307; 81003; 81025; 82077; 83735; 84484; 85025; 93005; 99284

== ENCOUNTER 2021-09-13 12:29 | Outpatient (REF) | payer OTHER, SELFPAY | END 2021-09-13 12:30 | disposition home or self-care (01) | LOC: HO.HMGCLDS 12:29 | PROVIDERS: Visit Provider Internal Medicine Gastroenterology | DX: Z13.89 Encounter for screening for other disorder (principal) ==